=== PATIENT | female | born 1960 | race Caucasian/White ===

== ENCOUNTER → 2017-02-22 | Day surgery (SDC) | payer MEDICARE, MEDICAID ==
[~2017-02-22] MED LIST: ESOM40CA PO; ESTR0.9T PO; HYDR-2762 PO; IV RINGERS,LACTATED 1000ML 1,000 ML IV ONE; LEVO175T5 PO; LIDOCAINE 2% PF Vial for OR 5 ML VIAL. ONE; LOSA25TA4 PO; PROPOFOL 20 ML IV ONE; SCOP1PAT TD; SPIR25TA3 PO; WALK1EAC MC
[2017-02-22 13:25] VITALS: BP 117/68
== END | disposition home or self-care (01) ==
LOC: SURG 12:04
PROVIDERS: ATTEND Internal Medicine Gastroenterology
DX: K21.0 Gastro-esophageal reflux disease with esophagitis (principal); K44.9 Diaphragmatic hernia without obstruction or gangrene; K29.50 Unspecified chronic gastritis without bleeding; I10 Essential (primary) hypertension; E66.9 Obesity, unspecified; E03.9 Hypothyroidism, unspecified; M19.90 Unspecified osteoarthritis, unspecified site; Z90.49 Acquired absence of other specified parts of digestive tract; Z90.710 Acquired absence of both cervix and uterus
CPT/HCPCS: 43239; 99156; J2704

== ENCOUNTER → 2018-01-10 | Outpatient (CLI) | payer MEDICARE, MEDICAID | END | disposition home or self-care (01) | LOC: MRI 14:43 | DX: M47.896 Other spondylosis, lumbar region (principal); M54.16 Radiculopathy, lumbar region | CPT/HCPCS: 72148 ==

== ENCOUNTER → 2018-04-02 | Outpatient (CLI) | payer MEDICARE, MEDICAID ==
[~2018-04-02] MED LIST changes: -ESOM40CA PO; -ESTR0.9T PO; -HYDR-2762 PO; +IOHEXOL 180 MG/ML 10 ML VIAL.; -IV RINGERS,LACTATED 1000ML 1,000 ML IV ONE; -LEVO175T5 PO; +LIDOCAINE 1% PF 2 ML VIAL.; -LIDOCAINE 2% PF Vial for OR 5 ML VIAL. ONE; -LOSA25TA4 PO; -PROPOFOL 20 ML IV ONE; -SCOP1PAT TD; -SPIR25TA3 PO; -WALK1EAC MC; +methylPREDNISolone ACETATE 40 MG/ML VIAL.; +methylPREDNISolone ACETATE 80 MG/ML VIAL.
== END ==
LOC: PNCL 10:37
DX: M51.16 Intervertebral disc disorders with radiculopathy, lumbar region (principal); M96.1 Postlaminectomy syndrome, not elsewhere classified; E66.9 Obesity, unspecified; M19.90 Unspecified osteoarthritis, unspecified site; I10 Essential (primary) hypertension; K21.9 Gastro-esophageal reflux disease without esophagitis; E03.9 Hypothyroidism, unspecified; Z98.890 Other specified postprocedural states; Z90.49 Acquired absence of other specified parts of digestive tract; Z85.41 Personal history of malignant neoplasm of cervix uteri; Z90.710 Acquired absence of both cervix and uterus; Z90.721 Acquired absence of ovaries, unilateral; Z80.9 Family history of malignant neoplasm, unspecified
CPT/HCPCS: 62323; J1030; J1040; Q9965

== ENCOUNTER → 2018-04-25 | Outpatient (CLI) | payer MEDICARE, MEDICAID | LOC: PNCL 13:00 | DX: M51.16 Intervertebral disc disorders with radiculopathy, lumbar region (principal); M96.1 Postlaminectomy syndrome, not elsewhere classified; I10 Essential (primary) hypertension; E66.9 Obesity, unspecified; M19.90 Unspecified osteoarthritis, unspecified site; E05.90 Thyrotoxicosis, unspecified without thyrotoxic crisis or storm; Z85.41 Personal history of malignant neoplasm of cervix uteri; J40 Bronchitis, not specified as acute or chronic; Z90.710 Acquired absence of both cervix and uterus; Z90.721 Acquired absence of ovaries, unilateral; Z88.8 Allergy status to other drugs, medicaments and biological substances; Z90.49 Acquired absence of other specified parts of digestive tract; Z98.890 Other specified postprocedural states | CPT/HCPCS: 62323; J1030; J1040; Q9965 ==

== ENCOUNTER → 2018-07-18 | Day surgery (SDC) | payer MEDICARE, MEDICAID ==
[~2018-07-18] MED LIST changes: +CARI350T PO; +ESOM40CA PO; +ESTR0.9T PO; +ESTR1TAB15 PO; +HYDR-2762 PO; +HYDR-2766 PO; -IOHEXOL 180 MG/ML 10 ML VIAL.; +IV RINGERS,LACTATED 1000ML 1,000 ML IV SCH; +LEVO175T5 PO; -LIDOCAINE 1% PF 2 ML VIAL.; +LOSA25TA5 PO; +PHEN37.598 PO; +PROPOFOL 40 ML IV ONE; +SCOP1PAT11 TD; +SPIR25TA5 PO; +WALK1EAC MC; -methylPREDNISolone ACETATE 40 MG/ML VIAL.; -methylPREDNISolone ACETATE 80 MG/ML VIAL.
[2018-07-18 14:16] VITALS: BP 134/82
--- NOTE | 2018-07-18 18:21 | CONS ---
DATE OF CONSULTATION: 07/18/2018 REFERRING PHYSICIAN: SEUN Blandon. HISTORY OF PRESENT ILLNESS: This is a 57-year-old female, with past medical history significant for hypertension, hypothyroidism, gastroparesis, history of CVA, seen for dysphagia, mainly with solids in the subcervical location. Liquids have been fine. There has been minimal heartburn. Does not use alcohol, nicotine and caffeine as risk factors for reflux. In addition, she requests a screening colonoscopy. Bowel habits are regular without diarrhea or constipation at the present time. No bleeding was noted. Weight is slightly increased. PAST MEDICAL HISTORY: Hypertension, status post CVA, arthritis, gastroparesis. ALLERGIES: CODEINE. MEDICATIONS: Include Soma, Nexium, estradiol, hydrocodone, levothyroxine and Adipex. FAMILY HISTORY: Significant for diabetes with a grandparent, hypertension and esophageal cancer with a paternal grandfather. SOCIAL HISTORY: She is a nonsmoker, nondrinker. PAST SURGICAL HISTORY: Status post hysterectomy, appendectomy, eye surgery and cholecystectomy. REVIEW OF SYSTEMS: As per records. PHYSICAL EXAMINATION: GENERAL: Reveals a well-nourished, well-developed female. VITAL SIGNS: Temperature is 97.2, pulse 79 and respiratory rate is 18. HEENT: Normocephalic and atraumatic head. Pupils and extraocular muscles are not tested. Sclerae anicteric. LUNGS: Clear. CARDIOVASCULAR: Reveals an S1, S2 without S3, S4 or appreciable murmur. ABDOMEN: Soft abdomen, normal bowel sounds without appreciable hepatosplenomegaly. EXTREMITIES: Reveals no cyanosis, clubbing or edema. IMPRESSION: 1. Dysphagia, etiology is to be determined, Schatzki's ring, malignancy, Landon's, peptic stricture, eosinophilic ruptures in the differential. Therefore, recommend upper endoscopy, possible biopsy and/or dilatation in view of her gastroparesis. 2. Colorectal screening is warranted at this time. Risks and benefits of procedure including risk of hemorrhage and perforation have been discussed with the patient on both regards, EGD and colonoscopy, and she is willing to proceed. ILENE CEJA MD DR: CYNTHIA/gail JOB#: [id number] / [id number]
== END | disposition home or self-care (01) ==
LOC: ENDOS 11:52
PROVIDERS: ATTEND Internal Medicine Gastroenterology
DX: Z12.11 Encounter for screening for malignant neoplasm of colon (principal); K57.30 Diverticulosis of large intestine without perforation or abscess without bleeding; K64.0 First degree hemorrhoids; K22.2 Esophageal obstruction; I10 Essential (primary) hypertension; E03.9 Hypothyroidism, unspecified; Z86.73 Personal history of transient ischemic attack (TIA), and cerebral infarction without residual deficits; K31.84 Gastroparesis; M19.90 Unspecified osteoarthritis, unspecified site; Z88.5 Allergy status to narcotic agent; Z79.899 Other long term (current) drug therapy; Z83.3 Family history of diabetes mellitus; Z82.49 Family history of ischemic heart disease and other diseases of the circulatory system; Z90.710 Acquired absence of both cervix and uterus; Z90.49 Acquired absence of other specified parts of digestive tract; Z98.890 Other specified postprocedural states
CPT/HCPCS: 43235; 43450; G0121; J2704; 45378

== ENCOUNTER → 2021-04-26 | Outpatient (CLI) | payer OTHER ==
[2018-07-18 14:16] VITALS: BP 134/82
[~2021-04-26] MED LIST changes: +ESTR-113 PO; -ESTR1TAB15 PO; -HYDR-2762 PO; +HYDR-2765 PO; -HYDR-2766 PO; +HYDR-2769 PO; -IV RINGERS,LACTATED 1000ML 1,000 ML IV SCH; -LOSA25TA5 PO; +LOSA25TA54 PO; -PROPOFOL 40 ML IV ONE
--- NOTE | 2021-04-26 14:08 | KCIC ---
EXAM: Lumbar spine MRI without contrast. HISTORY: Chronic pain. TECHNIQUE: Multiplanar, multisequence magnetic resonance imaging of the lumbar spine was performed wi thout contrast. COMPARISON: 01/10/2018 FINDINGS: There is mild lumbar hyperlordosis. There is minimal retrolisthesis of T12 on L1 and L1 on L2, measuring 2 mm. There is degenerative endplate remodeling with disc space narrowing and osteophyt osis at L4-L5. There is endplate remodeling and disc desiccation at the remainder of the lumbar level s. There is no fracture or suspicious osseous lesion. The conus terminates at the superior aspect of L1. At L1-L2, there is a minimal disc bulge and endplate remodeling. There is minimal facet arthropathy. There is no stenosis. At L2-L3, there is a minimal disc bulge and endplate remodeling. There is minimal facet arthropathy. There is no stenosis. At L3-L4, there is a minimal shallow posterior central disc protrusion and annular tear superimposed on a mild disc bulge and endplate remodeling. There is mild bilateral facet arthropathy. There is no stenosis. At L4-L5, there is a mild disc bulge and moderate endplate remodeling. There is moderate bilateral fa cet arthropathy. There are right hemilaminectomy and suspected microdiscectomy changes. There is asso ciated scarring within the midline posterior back subcutaneous fat. There is mild effacement of the r ight lateral recess. At L5-S1, there is a shallow posterior central to right paracentral disc protrusion and there are bharathi ateral foraminal to extra foraminal disc protrusions superimposed on a mild disc bulge and endplate r emodeling. There is mild right facet arthropathy. There is abutment or near abutment of the exiting L 5 nerve root without significant foraminal stenosis. There is mild narrowing of the right lateral rec ess. IMPRESSION: 1. Multilevel degenerative change involving the lumbar spine, described in detail above. This is not significantly changed compared to the prior study, allowing for changes in technique. 2. Stable right hemilaminectomy and suspected microdiscectomy changes at L4-L5. Electronically signed by: Rachel Lopez MD (04/26/2021 2:06 PM) [id number]
== END ==
LOC: KCIC MRI 13:18
PROVIDERS: ATTEND Physician Assistant Medical
DX: M51.17 Intervertebral disc disorders with radiculopathy, lumbosacral region (principal); M47.27 Other spondylosis with radiculopathy, lumbosacral region; M48.07 Spinal stenosis, lumbosacral region
CPT/HCPCS: 72148